=== PATIENT | female | born 1990 | race Caucasian/White ===

== ENCOUNTER 2016-09-03 19:34 | Observation (INO) | payer OTHER ==
[2016-09-03 20:36] LABS: ABSOLUTE IMMATURE GRANULOCYTES 0.11 10^3/uL (0.00-0.10); ADD DIFF? NO; ADD MORPH? NO; ADD SCAN? NO; ATYPICAL LYMPHOCYTE FLAG 10 (0-99); FRAGMENT RBC FLAG 0 (0-99); HEMATOCRIT 39.3 % (38.0-47.0); HEMOGLOBIN 13.7 g/dL (12.6-16.3); LEFT SHIFT FLG 0 (0-99); LIPEMIA HEMOLYSIS FLAG 90 (0-99); MEAN CELL HEMOGLOBIN 32.4 pg (27.9-34.1); MEAN CELL HEMOGLOBIN CONCENTR. 34.9 g/dL (32.4-36.7); MEAN CELL VOLUME 92.9 fL (81.5-99.8); MEAN PLATELET VOLUME 11.7 fL (8.7-11.7); PLATELET CLUMPS FLAG 10 (0-99); PLATELET COUNT 148 10^3/uL (150-400); RED BLOOD CELL COUNT 4.23 10^6/uL (4.18-5.33); RED CELL DISTRIBUTION WIDTH 12.4 % (11.5-15.2)
[2016-09-03 20:43] LABS: ALANINE AMINOTRANSFERASE 33 IU/L (9-52); ASPARTATE AMINOTRANSFERASE 25 IU/L (14-46); BILIRUBIN,TOTAL 0.4 mg/dL (0.1-1.4); BILIRUBIN-CONJUGATED 0.1 mg/dL (0.0-0.5); BILIRUBIN-UNCONJUGATED 0.3 mg/dL (0.0-1.1); CREATININE 0.6 mg/dL (0.6-1.0); GLOMERULAR FILTRATION RATE > 60; LACTATE DEHYDROGENASE 392 IU/L (313-618); URIC ACID 4.6 mg/dL (2.5-6.8)
== END 2016-09-03 22:03 | disposition home or self-care (01) ==
LOC: FLD 19:34
PROVIDERS: ADMIT Obstetrics & Gynecology; ATTEND Obstetrics & Gynecology
DX: O13.3 Gestational [pregnancy-induced] hypertension without significant proteinuria, third trimester (principal); Z3A.35 35 weeks gestation of pregnancy

== ENCOUNTER 2016-09-14 14:28 | Observation (INO) | payer OTHER ==
[2016-09-14 15:19] LABS: % IMMATURE GRANULYOCYTES 0.6 % (0.0-1.1); ABSOLUTE IMMATURE GRANULOCYTES 0.06 10^3/uL (0.00-0.10); ADD DIFF? NO; ADD MORPH? NO; ADD SCAN? NO; ATYPICAL LYMPHOCYTE FLAG 0 (0-99); FRAGMENT RBC FLAG 0 (0-99); HEMATOCRIT 41.3 % (38.0-47.0); HEMOGLOBIN 14.3 g/dL (12.6-16.3); LEFT SHIFT FLG 0 (0-99); LIPEMIA HEMOLYSIS FLAG 90 (0-99); MEAN CELL HEMOGLOBIN 32.1 pg (27.9-34.1); MEAN CELL HEMOGLOBIN CONCENTR. 34.6 g/dL (32.4-36.7); MEAN CELL VOLUME 92.8 fL (81.5-99.8); MEAN PLATELET VOLUME 12.1 fL (8.7-11.7); PLATELET CLUMPS FLAG 0 (0-99); PLATELET COUNT 155 10^3/uL (150-400); RED BLOOD CELL COUNT 4.45 10^6/uL (4.18-5.33); RED CELL DISTRIBUTION WIDTH 12.1 % (11.5-15.2)
[2016-09-14] MEDS ORDERED: ACETAMINOPHEN 500 MG TAB PO ONE (15:30)
[2016-09-14 15:37] LABS: ALANINE AMINOTRANSFERASE 40 IU/L (9-52); ASPARTATE AMINOTRANSFERASE 29 IU/L (14-46); BILIRUBIN,TOTAL 0.4 mg/dL (0.1-1.4); BILIRUBIN-CONJUGATED 0.2 mg/dL (0.0-0.5); BILIRUBIN-UNCONJUGATED 0.2 mg/dL (0.0-1.1); CREATININE 0.6 mg/dL (0.6-1.0); GLOMERULAR FILTRATION RATE > 60; LACTATE DEHYDROGENASE 412 IU/L (313-618); URIC ACID 5.1 mg/dL (2.5-6.8)
== END 2016-09-14 16:30 | disposition home or self-care (01) ==
LOC: FLD 14:28
PROVIDERS: ADMIT Obstetrics & Gynecology; ATTEND Obstetrics & Gynecology
DX: O99.89 Other specified diseases and conditions complicating pregnancy, childbirth and the puerperium (principal); Z3A.37 37 weeks gestation of pregnancy
CPT/HCPCS: G0378 ×2

== ENCOUNTER 2016-09-18 10:18 | Inpatient (IN) | payer OTHER ==
[2016-09-18 11:10] LABS: % IMMATURE GRANULYOCYTES 0.7 % (0.0-1.1); ABSOLUTE IMMATURE GRANULOCYTES 0.06 10^3/uL (0.00-0.10); ADD DIFF? NO; ADD MORPH? NO; ADD SCAN? NO; ATYPICAL LYMPHOCYTE FLAG 0 (0-99); FRAGMENT RBC FLAG 0 (0-99); HEMATOCRIT 38.8 % (38.0-47.0); HEMOGLOBIN 13.6 g/dL (12.6-16.3); LEFT SHIFT FLG 0 (0-99); LIPEMIA HEMOLYSIS FLAG 90 (0-99); MEAN CELL HEMOGLOBIN 32.4 pg (27.9-34.1); MEAN CELL HEMOGLOBIN CONCENTR. 35.1 g/dL (32.4-36.7); MEAN CELL VOLUME 92.4 fL (81.5-99.8); PLATELET CLUMPS FLAG 0 (0-99); PLATELET COUNT 129 10^3/uL (150-400); RED CELL DISTRIBUTION WIDTH 12.1 % (11.5-15.2)
[2016-09-18 11:21] LABS: ALANINE AMINOTRANSFERASE 29 IU/L (9-52); ASPARTATE AMINOTRANSFERASE 20 IU/L (14-46); BILIRUBIN,TOTAL 0.3 mg/dL (0.1-1.4); BILIRUBIN-CONJUGATED 0.1 mg/dL (0.0-0.5); BILIRUBIN-UNCONJUGATED 0.2 mg/dL (0.0-1.1); CREATININE 0.6 mg/dL (0.6-1.0); GLOMERULAR FILTRATION RATE > 60; LACTATE DEHYDROGENASE 346 IU/L (313-618); URIC ACID 5.4 mg/dL (2.5-6.8)
--- NOTE | 2016-09-18 15:31 | GHP ---
[f rep st] PREOP HISTORY AND PHYSICAL DATE OF ADMISSION: 09/18/2016 ADMITTING DIAGNOSIS: Intrauterine at 38 and 0/7 weeks gestation, for induction of labor s econdary to preeclampsia, with increasing blood pressures and symptoms. HISTORY OF PRESENT ILLNESS: The patient is a 25-year-old, 2, para 0-0-1-0, with a last mens trual period of 12/27/2015, and an EDC of 10/02/2016. She has had good care at [facility] since registration in the 1st trimester. Her risk factors are significant for GE RD, anxiety, and panic disorder, decreased platelets in the 1st trimester, and mild preeclampsia deric gnosed at 36 weeks, and hypothyroidism. On the morning of the , she complained of significantly worsening headaches and episodes of scotomata, she was unable to take her blood pressures, she was having difficulties with her blood pressure cuff at home, and so she presented to the hospital for e valuation. Currently she has a mild headache, scotoma episodes have resolved. Blood pressures have ranged from 106 to 143/52 to 93. She has 3 elevated blood pressures 142/85, 141/92, and 143/93. O thers have been normal. She was initially diagnosed with preeclampsia at 36 weeks, with elevated bl ood pressures in the office, and in labor and delivery with diastolics in the 90s. PIH labs were dr bernal, and they have been normal, except for labile platelets in the 140s to 120s. A 24 hour urine pr otein was performed and returned at 639 mg on September 05. She has been followed closely with 2 times a week nonstress tests, ultrasound, and weekly PIH labs. Ultrasound: Baby's estimated weigh t was 88th percentile. Normal LAURA, baby cephalic, and her nonstress tests have been reactive. Corral luis, she has two elevated blood pressures today, and is symptomatic, and so I have decided to procee d with induction of labor secondary to worsening preeclampsia. Labs today were stable, PIH labs wer e again normal, except for platelets of 129. AST, ALT, uric acid, creatinine, all of her other labs were normal. PAST OBSTETRICAL HISTORY: In June of 2015, she had a spontaneous at 8 weeks, no complicatio ns, and this is her second . PAST GYNECOLOGICAL HISTORY: She had menarche at age 9-1/2, interval every 28 days, length 4 days. No abnormal Paps. She has used OCPs and condoms in the past. PAST MEDICAL HISTORY: History of anxiety and depression, and panic disorder. She is not on any cur rent meds. She has seen a therapist for years, and uses daily marijuana to combat her anxiety. Hyp othyroidism. PAST SURGICAL HISTORY: No past surgical history. ALLERGIES: No known drug allergies. MEDICATIONS: Just include vitamins currently, and Synthroid 50 mcg daily. LABS: She is B positive. Antibody negative. RPR nonreactive. Rubella immune. Hepatitis negative . HIV negative. Cystic fibrosis, SMA, fragile X negative. Pap normal. Gonorrhea and chlamydia no rmal. Verifi was normal. AFP was normal. 1-hour GTT 111. GBS was negative. Most recent TSH was 1.26, and PIH labs were as above. FAMILY HISTORY: Father and paternal grandmother have hypertension, father has hypercholesterolemia, mother and paternal grandmother have hypothyroidism. The patient was diagnosed with hypothyroidism on her labs, and she was placed on meds. Carlos Eduardo davis grandmother of colon cancer in her 60s. OBJECTIVE: VITAL SIGNS: Today, blood pressures as above. More importantly, she has 3 elevated pre ssures 143/93, 141/92, and 142/85. GENERAL: She is well-developed, well-nourished female, in no ac [place] distress. LUNGS: Clear to auscultation bilaterally. HEART: Regular rate and rhythm. No murm urs. ABDOMEN: Gravid, nontender, nondistended. Normal bowel sounds. 1+ edema. DTRs are 1+/1+. No clonus. heart tones are in the 130s, reactive, moderate variability, category 1. She is n ot earl. Her cervix is 1, 50% and -2. ASSESSMENT AND PLAN: A 25-year-old 2, para 0-0-1-0, at 38 weeks gestation for induction of labor secondary to mild preeclampsia. I placed a Garduno catheter. The patient tolerated that well. The patient will have a regular diet and expectant management overnight and start Pitocin in the mo rning. /[id number]/MODL
[2016-09-18] MEDS ORDERED: LR 500 ML IV PRN (18:30)
[2016-09-18] MEDS ORDERED: OXYTOCIN/RINGERS LACTATE 500 ML IV SCH (18:30)
[2016-09-18] MEDS ORDERED: EPSOM SALT 454 GM TP PRN (19:23)
[2016-09-18] MEDS ORDERED: OLIVE OIL 118 ML BTL MISC PRN (19:23)
[2016-09-18] MEDS ORDERED: TERBUTALINE SULFATE 1 MG/ML VIAL IV PRN (19:23)
[2016-09-18] MEDS ORDERED: LR 1,000 ML IV PRN (19:23)
[2016-09-18] MEDS: PRENATAL VIT 1 EACH TAB PO SCH ×2 (22:09→22:10)
[2016-09-19] MEDS: LEVOTHYROXINE 50 MCG TAB PO SCH (06:07)
[2016-09-19] MEDS ORDERED: ONDANSETRON 4 MG/2 ML VIAL IVP PRN (10:41)
[2016-09-19] MEDS ORDERED: PHENYLEPHRINE HCL 100 MCG/ML SYR ONE (11:41)
[2016-09-19] MEDS ORDERED: fentaNYL 2MCG/ML/BUP 0.1% RTU 100 ML BAG EP ONE (11:41)
[2016-09-19] MEDS ORDERED: BUPIVACAINE 0.25% 30 ML SDV ONE (11:41)
[2016-09-19] MEDS ORDERED: fentaNYL 100 MCG/2 ML INJ ONE ×2 (11:42→20:31)
--- NOTE | 2016-09-19 12:44 | OBPROG ---
OBG Labor Progress Note Assessment/Plan: Assessment: Plan: Subjective: patient is comfortable with epidural. pitocin is at 20 mu. AROM. moderate amount of clear fluid. will place teran. blood pressures stable. headache resolved. Objective: 09/18/16 11:00 09/18/16 11:00 Patient ABO/Rh B POSITIVE 09/18/16 22:19 Uric Acid 5.4 mg/dL (2.5-6.8) 09/18/16 11:00 Total Bilirubin 0.3 mg/dL (0.1-1.4) 09/18/16 11:00 Conjugated Bilirubin 0.1 mg/dL (0.0-0.5) 09/18/16 11:00 Unconjugated Bilirubin 0.2 mg/dL (0.0-1.1) 09/18/16 11:00 AST 20 IU/L (14-46) 09/18/16 11:00 ALT 29 IU/L (9-52) 09/18/16 11:00 Lactate Dehydrogenase 346 IU/L (313-618) 09/18/16 11:00 - SVE Dilation (cm): 4 Effacement (%): 50 Station: -2 Chong Current Contraction Pattern: Regular FHR Pattern Variability: Moderate FHR Category: 1 Membranes: AROM Amniotic Fluid Color: Clear - Procedures Non-surgical Procedures: Amniotomy Oxytocin Orders Assessment - Pre-Induction/Augmentation Assessment Gestational Age: 38 week(s) and 0 day(s) ICD10 Worksheet Patient Problems: Problems Problem Status Onset Mild preeclampsia Acute
--- NOTE | 2016-09-19 12:44 | PREANESOB ---
Obstetric Pre-Anesthesia Info - General Info Proposed Procedure: Labor and delivery with pitocin. : 2 Para: 0 WBD: 38 - Info Status: Full Term Monitors: External FHR Baseline (bpm): 150 FHR Pattern: Reassuring - Labor Status Cervical Dilation per last OB SVE: 1 Pitocin: In Use PIH: Mild Indications for Labor Analgesia: Induction of Labor, Pain Control Labor Epidural: Proposed Anesthesia ROS: Preeclampsia. Hypothyroid. Allergies/Adverse Reactions: Allergy/AdvReac Type Severity Reaction Status Date / Time adhesive tape Allergy Verified 09/03/16 19:47 Home Medications: Medication Instructions Recorded Levothyroxine [Synthroid 50 mcg 1 tab PO DAILY 09/03/16 (*)] 1 tab PO DAILY 09/03/16 Visit Medications: Generic Name Dose Route Start Last Admin Trade Name Freq PRN Reason Stop Dose Admin Lactated Ringer's 500 mls @ 500 mls/hr 09/18/16 18:30 Lr IV PRN PRN Maternal Hypotension Oxytocin/Lactated Ringer's 500 mls @ 0 mls/hr 09/18/16 18:30 09/19/16 06:00 Pitocin 30 Units/Lr (Premix) IV 03/17/17 18:29 500 mls CONT BC Administration Protocol Per Protocol Lactated Ringer's 1,000 mls @ 0 mls/hr 09/18/16 19:23 09/19/16 05:55 Lr IV 03/17/17 19:22 1,000 mls PRN PRN Administration SEE PROTOCOL CONDITIONS Protocol Per Protocol Ibuprofen 600 mg 09/18/16 19:23 Motrin PO 03/17/17 19:22 Q6HRS PRN post , inflammation Levothyroxine Sodium 50 mcg 09/19/16 06:00 09/19/16 06:07 Synthroid PO 03/18/17 05:59 50 mcg DAILY06 BC Administration Magnesium Sulfate 454 gm 09/18/16 19:23 Epsom Salt TP 03/17/17 19:22 Q1H PRN perineal discomfort Jameson Oil 118 ml 09/18/16 19:23 Sweet Oil MISC 03/17/17 19:22 ONCE PRN preneal massage Ondansetron HCl 4 mg 09/19/16 10:41 Zofran IVP 03/18/17 10:40 Q4HRS PRN Nausea/Vomiting, Can't Take PO Prenat Multivit/Sql Server Developer/Iron/Folic Ac 1 each 09/19/16 08:00 09/18/16 22:10 PO 03/18/17 07:59 1 each DAILY8 BC Administration Terbutaline Sulfate 0.25 mg 09/18/16 19:23 Brethine IV 03/17/17 19:22 ONCE PRN Tachysystole Discontinued Medications Generic Name Dose Route Start Last Admin Trade Name João PRN Reason Stop Dose Admin Bupivacaine HCl Confirm 09/19/16 11:41 Sensorcaine 0.25% Sdv Administered 09/19/16 11:42 Dose 30 ml .ROUTE .STK-MED ONE Fentanyl Confirm 09/19/16 11:42 Sublimaze Administered 09/19/16 11:43 Dose 100 mcg .ROUTE .STK-MED ONE Fentanyl/Bupivacaine HCl Confirm 09/19/16 11:41 Fentanyl/Bupivacaine/Ns 2 Mcg/Ml 0.1% (Premix Administered 09/19/16 11:42 Dose 100 ml EP .STK-MED ONE Phenylephrine HCl Confirm 09/19/16 11:41 Neosynephrine Administered 09/19/16 11:42 Dose 1,000 mcg .ROUTE .STK-MED ONE - Anesthesia History Response to Local Anesthetics: Normal Anesthesia & Operative History: No Prior Problems Family Anesthesia History: Negative - Social History Substance Use/Abuse: Denies - Focused Exam Blood Pressure: 116/81 Heart Rate: 88 Respiratory Rate: 16 Height/Weight (Nursing): Height 177.8 cm Weight 90.718 kg Physical Exam: Within normal limits. ASA Status: II Labs: 09/18/16 11:00 09/18/16 11:00 Patient ABO/Rh B POSITIVE 09/18/16 22:19 Uric Acid 5.4 mg/dL (2.5-6.8) 09/18/16 11:00 Total Bilirubin 0.3 mg/dL (0.1-1.4) 09/18/16 11:00 Conjugated Bilirubin 0.1 mg/dL (0.0-0.5) 09/18/16 11:00 Unconjugated Bilirubin 0.2 mg/dL (0.0-1.1) 09/18/16 11:00 AST 20 IU/L (14-46) 09/18/16 11:00 ALT 29 IU/L (9-52) 09/18/16 11:00 Lactate Dehydrogenase 346 IU/L (313-618) 09/18/16 11:00 - Plan Consent Signed and on Chart: Yes Patient/Guardian Understands and Agrees to Plan: Yes Urgent/Emergent Case: Halie saldana completed preop but documented later for safe timely pt care
[2016-09-19] MEDS ORDERED: PHENYLEPHRINE HCL 100 MCG/ML SYR IVP PRN (12:48)
--- NOTE | 2016-09-19 12:48 | POSTANESTH ---
Post Anesthetic Evaluation Cardiovascular Status: Normal, Stable, Similar to Pre-Op Cond Respiratory Status: Normal, Stable, Similar to Pre-op Cond. Level of Consciousness/Mental Status: Can Participate in Eval, Alert and Oriented Pain Control: Adequate, Prn Tx Ordered Nausea/Vomiting Control: Adequate, Prn Tx Ordered Complications Possibly Related to Anesthesia: None Noted
[2016-09-19] MEDS ORDERED: LR 500 ML IV SCH (13:00)
[2016-09-19] MEDS ORDERED: fentaNYL 2MCG/ML/BUP 0.1% RTU 100 ML EP SCH (13:00)
--- NOTE | 2016-09-19 18:48 | OBPROG ---
OBG Labor Progress Note Assessment/Plan: Assessment: Plan: Subjective: Patient is comfortable with epidural. SVE - minimal change since AROM. IUPC placed without difficulty. contractions are adequate. pitcoin is at 19. status reassuring. discussed minimal change in cervix. just placed IUPC but I assume contractions have been adequate for at least a few hours. will recheck in 1-2 hours )sooner if indicated). and if no change will discuss PLTCS further. Objective: 09/18/16 11:00 09/18/16 11:00 Patient ABO/Rh B POSITIVE 09/18/16 22:19 Uric Acid 5.4 mg/dL (2.5-6.8) 09/18/16 11:00 Total Bilirubin 0.3 mg/dL (0.1-1.4) 09/18/16 11:00 Conjugated Bilirubin 0.1 mg/dL (0.0-0.5) 09/18/16 11:00 Unconjugated Bilirubin 0.2 mg/dL (0.0-1.1) 09/18/16 11:00 AST 20 IU/L (14-46) 09/18/16 11:00 ALT 29 IU/L (9-52) 09/18/16 11:00 Lactate Dehydrogenase 346 IU/L (313-618) 09/18/16 11:00 Temp Pulse Resp BP Pulse Ox 88 16 116/81 H 09/19/16 12:47 09/19/16 12:47 09/19/16 12:47 - SVE Dilation (cm): 3, 4 Effacement (%): 50 Station: -2 Chong Current Contraction Pattern: Regular FHR Pattern Variability: Moderate FHR Category: 1 Membranes: AROM Amniotic Fluid Color: Clear - Procedures Non-surgical Procedures: Amniotomy Oxytocin Orders Assessment - Pre-Induction/Augmentation Assessment Gestational Age: 38 week(s) and 0 day(s) ICD10 Worksheet Patient Problems: Problems Problem Status Onset Mild preeclampsia Acute
[2016-09-19] MEDS ORDERED: OXYTOCIN 10 UNIT/ML VIAL ONE (19:16)
[2016-09-19] MEDS ORDERED: AMMONIA AROMATIC 1 EACH AMP IH ONE (19:16)
[2016-09-19] MEDS ORDERED: OLIVE OIL 118 ML BTL ONE (19:16)
[2016-09-19] MEDS ORDERED: LIDOCAINE 1% 300 MG/30 ML SDV ONE (19:16)
[2016-09-19] MEDS ORDERED: TERBUTALINE SULFATE 1 MG/ML VIAL ONE (19:16)
[2016-09-19] MEDS ORDERED: MISOPROSTOL 200 MCG TAB ONE (19:17)
[2016-09-19] MEDS ORDERED: LIDO/EPI 2% **for epidural** 20 ML SDV ONE (20:30)
--- NOTE | 2016-09-19 20:39 | OBPROG ---
OBG Labor Progress Note Assessment/Plan: Assessment: Plan: Subjective: patient is comfortable. feeling some pressure anteriorly. sve. no change in cervix despite adequate contractions for at least 2 hours (placement of IUPC ) but likely has had adequate contractions since AROM. long discussion with patient and her . discussed arrest of dilations and descent. will proceed with PLTCS,. consent obtained. Objective: 09/18/16 11:00 09/18/16 11:00 Patient ABO/Rh B POSITIVE 09/18/16 22:19 Uric Acid 5.4 mg/dL (2.5-6.8) 09/18/16 11:00 Total Bilirubin 0.3 mg/dL (0.1-1.4) 09/18/16 11:00 Conjugated Bilirubin 0.1 mg/dL (0.0-0.5) 09/18/16 11:00 Unconjugated Bilirubin 0.2 mg/dL (0.0-1.1) 09/18/16 11:00 AST 20 IU/L (14-46) 09/18/16 11:00 ALT 29 IU/L (9-52) 09/18/16 11:00 Lactate Dehydrogenase 346 IU/L (313-618) 09/18/16 11:00 Temp Pulse Resp BP Pulse Ox 88 16 116/81 H 09/19/16 12:47 09/19/16 12:47 09/19/16 12:47 - SVE Dilation (cm): 3 Effacement (%): 50 Station: -2 Chong Current Contraction Pattern: Regular FHR Pattern Variability: Moderate FHR Category: 1 Membranes: AROM Amniotic Fluid Color: Clear - Procedures Non-surgical Procedures: Amniotomy Oxytocin Orders Assessment - Pre-Induction/Augmentation Assessment Gestational Age: 38 week(s) and 0 day(s) ICD10 Worksheet Patient Problems: Problems Problem Status Onset Mild preeclampsia Acute
[2016-09-19] MEDS ORDERED: LR 500 ML IV ONE (20:40)
[2016-09-19] MEDS ORDERED: ceFAZolin 2 GM/DEXTROSE 100 ML IV ONE (20:40)
[2016-09-19] MEDS ORDERED: LR 1,000 ML IV SCH (21:00)
[2016-09-19] MEDS ORDERED: morphINE PF 5 MG/10 ML INJ ONE (21:07)
[2016-09-19] MEDS ORDERED: METHYLERGONOVINE MAL 0.2 MG/ML INJ ONE (21:08)
[2016-09-19] MEDS ORDERED: HEMABATE 250 MCG/1 ML AMP IM ONE (21:08)
[2016-09-19] MEDS ORDERED: ONDANSETRON 4 MG/2 ML VIAL ONE ×2 (21:20→21:31)
[2016-09-19] MEDS ORDERED: SCOPOLAMINE HYDROBROMIDE 1.5 MG PATCH TD ONE (21:28)
[2016-09-19] MEDS ORDERED: OXYTOCIN 100 UNITS/10 ML VIAL ONE (21:31)
[2016-09-19] MEDS ORDERED: DEXAMETHASONE 4 MG/ML VIAL ONE ×2 (21:31)
[2016-09-19] MEDS ORDERED: MEPERIDINE 25 MG/ML SYR ONE (21:42)
[2016-09-19] MEDS ORDERED: MAGNESIUM HYDROXIDE 30 ML UDCUP PO PRN (22:04)
[2016-09-19] MEDS ORDERED: PROMETHAZINE HCL 25 MG/ML INJ IVP PRN (22:04)
[2016-09-19] MEDS ORDERED: LACTULOSE 20 GM/30 ML UDCUP PO PRN (22:04)
[2016-09-19] MEDS ORDERED: BISACODYL 10 MG SUPP PR PRN (22:04)
[2016-09-19] MEDS ORDERED: SIMETHICONE 80 MG TAB CHEW PO PRN (22:04)
[2016-09-19] MEDS ORDERED: POLYETHYLENE GLYCOL 3350 17 GM PKT PO PRN (22:04)
[2016-09-19] MEDS ORDERED: DOCUSATE SODIUM 100 MG CAP PO PRN (22:04)
--- NOTE | 2016-09-19 22:17 | OBDEL ---
Info Type: Primary GBS+: No Indications for Delivery: Preeclampsia Mild Vaginal Delivery - Labor and Delivery Non-surgical Procedures: Amniotomy Operative Report - Delivery Pre-op Diagnoses: mild preeclampsia, arrest of dilation and descent Post-op Diagnoses: same as pre op, occiput posterior Nulliparous Prior to Delivery: Yes Presentation at Delivery: Vertex Procedure: Unscheduled Surgeon: Cheryl Ruby Steel Die Printer: Destiny Akers Anesthesiologist: Genaro Mcdonald L&D Analgesia/Anesthesia Type: Epidural EBL: [address] Chong Delivery Date: 09/19/16 Delivery Time: 21:21 DARLYN: 10/02/16 Gestational Age: 38 week(s) and 1 day(s) Sex of : Female Score (1 Min): 8 Score (5 Min): 9 ICD10 Worksheet Patient Problems: Problems Problem Status Onset Mild preeclampsia Acute
[2016-09-19] MEDS ORDERED: NALOXONE HCL 0.4 MG/ML INJ IVP PRN (22:39)
[2016-09-19] MEDS ORDERED: SCOPOLAMINE HYDROBROMIDE 1.5 MG PATCH TD PRN (22:43)
--- NOTE | 2016-09-19 22:43 | POSTANESTH ---
Post Anesthetic Evaluation Cardiovascular Status: Normal, Stable Respiratory Status: Normal, Stable, Similar to Pre-op Cond. Level of Consciousness/Mental Status: Can Participate in Eval, Alert and Oriented (Epidural dosed for C Section, to OR, BP treated, comfortable for surgery, to PACU, no pain or nausea.) Pain Control: Adequate, Prn Tx Ordered Nausea/Vomiting Control: Adequate, Prn Tx Ordered Complications Possibly Related to Anesthesia: None Noted
[2016-09-19] MEDS ORDERED: KETOROLAC 30 MG/1 ML SDV ONE (23:38)
[2016-09-20] MEDS: KETOROLAC 30 MG/1 ML SDV IVP SCH ×4 (00:10→17:44)
--- NOTE | 2016-09-20 04:52 | GOP ---
[f rep st] OPERATIVE REPORT DATE OF OPERATION: 09/19/2016 SURGEON: Cheryl Ruby DO NURSE NAVIGATOR: SRAVAN Dumont ANESTHESIA: Epidural. ANESTHESIOLOGIST: Genaro Mcdonald M.D. PREOPERATIVE DIAGNOSIS: 1. Mild preeclampsia. 2. Arrest of descent and dilation. POSTOPERATIVE DIAGNOSIS: 1. Mild preeclampsia. 2. Arrest of descent and dilation. 3. Occiput posterior, asynclitic. PROCEDURE PERFORMED: Primary low transverse section. FINDINGS: 1. Viable female in the occiput posterior asynclitic presentation, delivered at 2121, Apgars were 8 and 9. 2. Intact placenta with 3-vessel cord. 3. Normal ovaries, uterus, and tubes. ESTIMATED BLOOD LOSS: 800 cc. INDICATIONS: Patient is a 25-year-old, 2, para 0-0-1-0, who is 38-1/7 weeks' gestation. e has been monitored since 36 weeks for elevated blood pressures and proteinuria. The patient had a n elevated protein level, 24 urine protein of 600 mg. She presented to labor and delivery on 09/18, with complaint of headache and scotomata. Her blood pressures were noted to be in the 140s. Decis ion was made to admit the patient for induction of labor. Her labs were normal and her blood pressu re stabilized. She was started on and a was placed in the evening. She was s tarted on Pitocin in the morning. The patient progressed when Pitocin was started in the morning. She started having strong regular contractions. She received an epidural which provided adequate pa in relief. At noon her membranes were artificially ruptured and a large amount of clear fluid was n oted. The patient was 3 cm dilated at that time. She continued having strong regular contractions but after 5 hours, there was no change in her cervix. I placed an IUPC. After her contractions wer e immediately adequate and then she was monitored for 2 additional hours, and no change in her cervi x was made. The cervix was dilated to 3 cm, 50% effaced, and -2 station, and the head was easily el evated out the pelvis. Management options were reviewed with the patient. Decision was made to pro ceed with a primary low transverse section. Risks and benefits of the procedure were revie wed. The patient was properly consented. DESCRIPTION OF PROCEDURE: The patient was taken to the operating room with intravenous fluids in pl jos. She was given 2 g of Ancef. Her epidural was then re bolused. She was then placed on the ope rating room table in the dorsal supine position with a leftward tilt. Venodynes were placed on her lower extremities. A Garduno catheter was then placed. She was then prepped and draped in a normal s terile fashion. Anesthesia was assessed and found to be adequate. A Pfannenstiel skin incision was then made 2 fingerbreadths above the pubic symphysis. The incision was then carried through to the underlying layer of fascia with the Bovie. The fascia was then nicked in the midline and the fasci al incision was extended laterally. The superior aspect of the fascial incision was then grasped wi th a Andreia, tented up, and the underlying rectus muscle dissected off bluntly with the Bovie. Atte ntion was then turned to the inferior aspect of the fascial incision, which, in a similar fashion, w as grasped with a Andreia, tented up, and the underlying rectus muscle dissected off bluntly with the Bovie. The rectus muscle was then in the midline. The peritoneum was then identified, t ented up, and entered sharply with the Metzenbaum scissors. The incision was extended superiorly an d inferiorly with excellent visualization of the bladder. The bladder blade was then inserted. The vesicouterine peritoneum was identified, tented up, and entered sharply with the Metzenbaum scissor s. The incision was extended laterally and bladder flap was created digitally. Of note, I was able to elevate the infant's head out of the pelvis before the hysterotomy was made. The hysterotomy wa s then made and extended laterally with the bandage scissors. The 's head was then delivered through the incision and the remainder of the infant was delivered without difficulty. Delayed cord clamping x1 minute was done and the infant was noted to be vigorous and pink. The cord was clamped x2 and cut after a minute. Then the infant was handed off to awaiting nurse practitioner and cord blood was obtained. The placenta was then exteriorized and cleared of all clots and debris . The bladder blade was then reinserted. The uterus was then closed with 0 Vicryl in a running, lo cked fashion. A 2nd 0 Vicryl stitch was used to imbricate the uterine incision. Hemostasis was ass ured. The ovaries, uterus, and tubes were unremarkable. The uterus was returned to the patient's a bdomen. The bladder blade was then reinserted. The gutters were cleared of all clots and debris. The hysterotomy remained hemostatic. Peritoneum was reapproximated with 3-0 Vicryl in a running fas hion. Rectus muscle was reapproximated with 2-0 Vicryl in a running fashion. Fascia was closed wit h 0 Vicryl in a running fashion. Subcutaneous tissue was found to be hemostatic. Subcuticular tiss ue was reapproximated with 3-0 Vicryl in a running fashion. The skin was then closed with kim. Sponge, lap, and needle counts were correct x2. Patient was transferred to the recovery room in st able condition. /[id number]/MODL
--- NOTE | 2016-09-20 07:36 | OBPP ---
Progress Note Assessment/Plan: Assessment:ff@u scant rubra lochia pain well managed well incision covered clean and dry bandage teran in place QD yellow urine denies passing gas as of yet Plan:po day 1 09/20/16 07:35 Subjective: Doing well denies difficulties. Pain well managed Objective: 09/18/16 11:00 09/18/16 11:00 Patient ABO/Rh B POSITIVE 09/18/16 22:19 Uric Acid 5.4 mg/dL (2.5-6.8) 09/18/16 11:00 Total Bilirubin 0.3 mg/dL (0.1-1.4) 09/18/16 11:00 Conjugated Bilirubin 0.1 mg/dL (0.0-0.5) 09/18/16 11:00 Unconjugated Bilirubin 0.2 mg/dL (0.0-1.1) 09/18/16 11:00 AST 20 IU/L (14-46) 09/18/16 11:00 ALT 29 IU/L (9-52) 09/18/16 11:00 Lactate Dehydrogenase 346 IU/L (313-618) 09/18/16 11:00 Temp Pulse Resp BP Pulse Ox 36.3 C 69 16 119/65 94 09/20/16 04:00 09/20/16 06:00 09/20/16 04:00 09/20/16 05:00 09/20/16 06:00 Uterine Position/Fundal Height: At Umbilicus Uterine Tone: Firm Physical Exam - Physical Exam General Appearance: WD/WN, alert, no apparent distress Respiratory: chest non-tender, lungs clear, normal breath sounds Cardiac/Chest: regular rate, rhythm Abdomen: hypoactive bowel sounds Extremities: normal range of motion, Nancy's sign (negative bilaterally) DTR- Lower Extremities: Knee (R): 1+, Knee (L): 1+ (no clonus bilaterally) Skin: normal color, warm/dry Neuro/Psych: no motor/sensory deficits, alert, normal mood/affect, oriented x 3
[2016-09-20] MEDS: LEVOTHYROXINE 50 MCG TAB PO SCH (08:00)
[2016-09-20] MEDS: PRENATAL VIT 1 EACH TAB PO SCH (10:48)
[2016-09-20] MEDS: HYDROCODONE/APAP 5/325 TAB PO PRN ×3 (15:24→20:48)
[2016-09-20] MEDS: SENNOSIDES/DOCUSATE SODIUM TAB PO SCH ×2 (15:50→20:48)
[2016-09-20] MEDS ORDERED: PATCH REMOVAL 1 EA PATCH TD ONE (22:44)
[2016-09-21] MEDS: IBUPROFEN 600 MG TAB PO PRN ×4 (00:25→18:27)
[2016-09-21] MEDS: HYDROCODONE/APAP 5/325 TAB PO PRN ×2 (01:54→08:20)
[2016-09-21] MEDS ORDERED: AMMONIA AROMATIC 1 EACH AMP IH ONE (02:18)
[2016-09-21] MEDS: LEVOTHYROXINE 50 MCG TAB PO SCH (08:20)
[2016-09-21] MEDS: SENNOSIDES/DOCUSATE SODIUM TAB PO SCH ×2 (08:49→21:05)
[2016-09-21] MEDS: PRENATAL VIT 1 EACH TAB PO SCH (08:49)
[2016-09-21] MEDS: IRON POLYSAC/IRON HEME 28 MG TAB PO SCH (08:49)
--- NOTE | 2016-09-21 10:37 | OBPP ---
Progress Note Assessment/Plan: Assessment: 25 y/o POD #2 s/p LTCS secondary to arrest of dilation after IOL @ 38 weeks for pre-eclampsia Plan: BP and symptoms now normal. We are working on regimen of pain meds and she will decide if she would want to try Percocet instead. Bowel protocol and support, routine POC. D/c kim tomorrow. 09/21/16 10:37 Subjective: Pt is doing well this am. She has a pre-syncopal episode when ambulating to void @ 2 am, which was partially due to [place] and exhaustion. She feels better now and is working on [place] and Ibuprofen for pain. No n/v, pavan reg diet and voiding well. + flatus, no BM yet. She is working on breast feeding and baby is doing well. She reports her CONTI and scotomata have completely resolved and her edema is also slowly improving. Objective: 09/20/16 09:30 09/18/16 11:00 Patient ABO/Rh B POSITIVE 09/18/16 22:19 Uric Acid 5.4 mg/dL (2.5-6.8) 09/18/16 11:00 Total Bilirubin 0.3 mg/dL (0.1-1.4) 09/18/16 11:00 Conjugated Bilirubin 0.1 mg/dL (0.0-0.5) 09/18/16 11:00 Unconjugated Bilirubin 0.2 mg/dL (0.0-1.1) 09/18/16 11:00 AST 20 IU/L (14-46) 09/18/16 11:00 ALT 29 IU/L (9-52) 09/18/16 11:00 Lactate Dehydrogenase 346 IU/L (313-618) 09/18/16 11:00 Temp Pulse Resp BP Pulse Ox 37.0 C 68 16 120/68 98 09/21/16 07:54 09/21/16 07:54 09/21/16 07:54 09/21/16 07:54 09/21/16 07:54 Uterine Position/Fundal Height: Umbilicus -2 Uterine Tone: Firm Physical Exam - Physical Exam General Appearance: WD/WN, alert, no apparent distress Neck: non-tender, full range of motion, supple Respiratory: chest non-tender, lungs clear, normal breath sounds Cardiac/Chest: regular rate, rhythm Abdomen: normal bowel sounds, incision (c/d/i) Extremities: swelling (1+), Nancy's sign (neg)
[2016-09-21] MEDS: OXYCODONE/APAP 5/325 TAB PO PRN ×4 (11:51→21:06)
[2016-09-22] MEDS: IBUPROFEN 600 MG TAB PO PRN ×4 (00:30→19:45)
[2016-09-22] MEDS: OXYCODONE/APAP 5/325 TAB PO PRN ×6 (01:01→22:46)
[2016-09-22] MEDS: LEVOTHYROXINE 50 MCG TAB PO SCH (06:22)
[2016-09-22] MEDS: SENNOSIDES/DOCUSATE SODIUM TAB PO SCH ×2 (07:54→19:45)
[2016-09-22] MEDS: PRENATAL VIT 1 EACH TAB PO SCH (07:54)
[2016-09-22] MEDS: IRON POLYSAC/IRON HEME 28 MG TAB PO SCH (07:54)
--- NOTE | 2016-09-22 11:47 | OBPP ---
Progress Note Assessment/Plan: Assessment: POD 3 s/p primary C/S for arrest of labor mild preeclampsia - term - B/P normal, labs normal pain control better with percocet Plan: Amb to help bowels, staple removal, d/c tomorrow 09/22/16 11:44 Subjective: Pt doing fine. pain is better controlled but she still feels burning on LLQ with mvmt. Working on BF - baby is on constantly - good latch - not too sore. bld is light. urinating fine. no BM yet. Objective: 09/20/16 09:30 09/18/16 11:00 Patient ABO/Rh B POSITIVE 09/18/16 22:19 Uric Acid 5.4 mg/dL (2.5-6.8) 09/18/16 11:00 Total Bilirubin 0.3 mg/dL (0.1-1.4) 09/18/16 11:00 Conjugated Bilirubin 0.1 mg/dL (0.0-0.5) 09/18/16 11:00 Unconjugated Bilirubin 0.2 mg/dL (0.0-1.1) 09/18/16 11:00 AST 20 IU/L (14-46) 09/18/16 11:00 ALT 29 IU/L (9-52) 09/18/16 11:00 Lactate Dehydrogenase 346 IU/L (313-618) 09/18/16 11:00 Temp Pulse Resp BP Pulse Ox 36.9 C 87 17 133/83 H 94 09/22/16 09:00 09/22/16 09:00 09/22/16 09:00 09/22/16 09:00 09/22/16 09:00 Uterine Position/Fundal Height: Umbilicus -1 Uterine Tone: Firm Physical Exam - Physical Exam General Appearance: WD/WN, alert Abdomen: non-tender (approp post op tenderness), soft, other (FF at umb-1, lochia scant, incision CDI) Extremities: non-tender, normal inspection, pedal edema (mild) Skin: normal color, warm/dry Neuro/Psych: alert, normal mood/affect
[2016-09-22 19:50] VITALS: RESP 18; TEMP 97.9
[2016-09-23] MEDS: IBUPROFEN 600 MG TAB PO PRN ×3 (02:15→14:31)
[2016-09-23] MEDS: OXYCODONE/APAP 5/325 TAB PO PRN ×3 (02:46→11:49)
[2016-09-23] MEDS: LEVOTHYROXINE 50 MCG TAB PO SCH (05:45)
[2016-09-23] MEDS: SENNOSIDES/DOCUSATE SODIUM TAB PO SCH (08:30)
[2016-09-23] MEDS: PRENATAL VIT 1 EACH TAB PO SCH (08:30)
[2016-09-23] MEDS: IRON POLYSAC/IRON HEME 28 MG TAB PO SCH (08:31)
--- NOTE | 2016-09-23 11:47 | OBPP ---
Progress Note Assessment/Plan: Assessment: POD 4 s/p primary C/S for arrest of labor mild preeclampsia - term - B/P normal, labs normal pain control better with percocet Plan: Amb to help bowels, d/c today 09/22/16 11:44 09/23/16 11:43 Subjective: Doing better. Has been able to decrease percocet to 1 q 4 hrs. Tried to ambulate but quite a bit of pain. Bld is light. urinating fine. Baby is latching well. no BM yet. ready for D/C Objective: 09/20/16 09:30 09/18/16 11:00 Patient ABO/Rh B POSITIVE 09/18/16 22:19 Uric Acid 5.4 mg/dL (2.5-6.8) 09/18/16 11:00 Total Bilirubin 0.3 mg/dL (0.1-1.4) 09/18/16 11:00 Conjugated Bilirubin 0.1 mg/dL (0.0-0.5) 09/18/16 11:00 Unconjugated Bilirubin 0.2 mg/dL (0.0-1.1) 09/18/16 11:00 AST 20 IU/L (14-46) 09/18/16 11:00 ALT 29 IU/L (9-52) 09/18/16 11:00 Lactate Dehydrogenase 346 IU/L (313-618) 09/18/16 11:00 Temp Pulse Resp BP Pulse Ox 36.6 C 81 18 119/73 94 09/22/16 19:47 09/22/16 19:47 09/22/16 19:47 09/22/16 19:47 09/22/16 09:00 Uterine Position/Fundal Height: Umbilicus -2 Uterine Tone: Firm Physical Exam - Physical Exam General Appearance: WD/WN, alert Abdomen: non-tender (approp post op tenderness), soft, other (incision CDI, normal lochia, FF at umb -2) Extremities: non-tender, pedal edema (moderate) Skin: normal color, warm/dry Neuro/Psych: alert, normal mood/affect
--- NOTE | 2016-09-23 11:56 | OBGCSDC ---
General Delivery Information - General Info : 2 Para: 2 Delivery Physician/CNM: Cheryl Ruby Face Cleaner: Destiny Akers Admission Date: 09/18/16 Labs: Patient ABO/Rh B POSITIVE 09/18/16 22:19 Hct 34.5 % (38.0-47.0) L 09/20/16 09:30 Vaginal - Diagnosis Presentation at Delivery: Vertex - Operations/Procedures Non-surgical Procedures: Amniotomy L&D Analgesia/Anesthesia Type: Epidural - Delivery Number of Prior Sections: 0 Indications for Current Section: Arrest of Dilation (at 3 cm) Type: Primary Non-surgical Procedures: Amniotomy Surgical Procedures: Unscheduled, Low Transverse EBL: 800 L&D Analgesia/Anesthesia Type: Epidural - Hospital Course Antepartum: induced for PIH with protein 600+. protein and borderline B/P since 36 wks, current CONTI and change in vision prompting induction Intrapartum: teran, pit, SURESH, AROM, IUPC and no change in cx in 8 hrs. baby OP : Pain management issues - switched to percocet with better control but constipation [place] [facility] Delivery Date: 09/19/16 Delivery Time: 21:21 DARLYN: 10[birth year]02[birth year]16 Gestational Age: 38 week(s) and 5 day(s) Sex of Infant: Female [place] Weight (gm): 3288 g Score (1 Min): 8 Score (5 Min): 9 Discharge Information - Discharge Information Discharge Medications: Iron, Ibuprofen, Oxycodone (thirty), Vitamins Condition: Good Instruction/Follow Up: See Instruction Sheet, Two Weeks, Four Weeks, Six Weeks Discharge Physician/CNM: Mere Stevens
[2016-09-23 16:51] VITALS: BP 123/80; PULSE 80; O2SAT 95
== END 2016-09-23 15:10 | disposition home or self-care (01) | DRG 766 ==
LOC: FLD 10:18 → OBSVTOIN 16:06 → FLD 18:14 → FOB 09-21 20:44
PROVIDERS: ADMIT Obstetrics & Gynecology; ATTEND Obstetrics & Gynecology
PROC: 3E033VJ Introduction of Other Hormone into Peripheral Vein, Percutaneous Approach (ICD-10-PCS; 2016-09-18)
PROC: 10907ZC Drainage of Amniotic Fluid, Therapeutic from Products of Conception, Via Natural or Artificial Opening (ICD-10-PCS; 2016-09-18)
PROC: 0U7C7ZZ Dilation of Cervix, Via Natural or Artificial Opening (ICD-10-PCS; 2016-09-18)
PROC: 10H07YZ Insertion of Other Device into Products of Conception, Via Natural or Artificial Opening (ICD-10-PCS; 2016-09-18)
PROC: 10D00Z1 Extraction of Products of Conception, Low, Open Approach (ICD-10-PCS; principal; 2016-09-19)
DX: O14.03 Mild to moderate pre-eclampsia, third trimester (principal); O61.0 Failed medical induction of labor; O62.0 Primary inadequate contractions; O64.0XX0 Obstructed labor due to incomplete rotation of fetal head, not applicable or unspecified; O32.4XX0 Maternal care for high head at term, not applicable or unspecified; O99.283 Endocrine, nutritional and metabolic diseases complicating pregnancy, third trimester; O99.343 Other mental disorders complicating pregnancy, third trimester; E03.9 Hypothyroidism, unspecified; Z3A.38 38 weeks gestation of pregnancy; Z37.0 Single live birth
CPT/HCPCS: J0690; J1100; J1885; J2210; J2274; J2370; J2405; J2550; J2590; J3010; J3105

== ENCOUNTER → 2016-10-03 | Outpatient (CLI) | payer OTHER | LOC: FLACT 10:30 | PROVIDERS: ATTEND Obstetrics & Gynecology | DX: O92.4 Hypogalactia (principal) | CPT/HCPCS: G0463 ==

== ENCOUNTER → 2016-10-07 | Outpatient (CLI) | payer OTHER | LOC: FLACT 09:17 | PROVIDERS: ATTEND Obstetrics & Gynecology | DX: O92.5 Suppressed lactation (principal) | CPT/HCPCS: G0463 ==

== ENCOUNTER 2017-01-07 16:53 | Emergency (ER) | payer OTHER ==
[2017-01-07 16:57] VITALS: PULSE 74; RESP 16; TEMP 97.3
--- NOTE | 2017-01-07 17:28 | EDPHY ---
H & P Time Seen by Provider: 01/07/17 17:19 HPI/ROS: CHIEF COMPLAINT: Right breast redness and swelling HISTORY OF PRESENT ILLNESS: The patient is a 26 y/o female 14 weeks , complaining of redness and swelling of her right breast for 6 hours. She has been using a breast pump, but has had to decrease the suction of the pump due to chafing of her breast. Has been unable to empty the right breast while pumping. Her daughter is not breast feeding, so she is pumping for all feedings. Denies fever, numbness, chest pain or other pertinent symptoms. REVIEW OF SYSTEMS: Aside from elements discussed in the HPI, a comprehensive 10-point review of systems was reviewed and is negative. Past Medical/Surgical History: Hypothyroid, GERD Social History: Friend and daughter at bedside, , lives in [place] Smoking Status: Never smoked Physical Exam: General Appearance: Alert, pleasant Eyes: Pupils equal and round, no conjunctival pallor ENT, Mouth: Mucous membranes moist Neck: Normal inspection Respiratory: Lungs are clear to auscultation Cardiovascular: Regular rate and rhythm Chest: Erythema, warmth, and tenderness on medial aspect of right breast, no fluctuance Gastrointestinal: Abdomen is soft and non-tender Neurological: A&O, nonfocal Skin: Warm and dry Extremities: Normal inspection Psychiatric: Mood and affect normal Constitutional: Initial Vital Signs Temperature (C) 36.3 C 01/07/17 16:55 Heart Rate 74 01/07/17 16:55 Respiratory Rate 16 01/07/17 16:55 Blood Pressure 129/82 H 01/07/17 16:55 O2 Sat (%) 97 01/07/17 16:55 O2 Delivery Mode Room Air Allergies/Adverse Reactions: adhesive tape Allergy (Verified 01/07/17 16:58) Home Medications: Medication Instructions Recorded Levothyroxine [Synthroid 50 mcg 1 tab PO DAILY 09/03/16 (*)] 1 tab PO DAILY 09/03/16 Iron Polysacch/Iron Heme Polyp 28 mg PO DAILY #0 tab 09/23/16 [Bifera] Levothyroxine [Synthroid 50 mcg 50 mcg PO DAILY06 #0 tab 09/23/16 (*)] Polyethylene Glycol 3350 [Miralax 17 gm PO DAILY PRN #0 pkt 09/23/16 17 gm (*)] Vit27&Calcium/Iron/FA 1 each PO DAILY8 #0 tab 09/23/16 [] Sennosides/Docusate Sodium 1 - 2 tab PO BID #0 tab 09/23/16 [Senokot-S] diphenhydrAMINE [Benadryl 25 - 50 mg IVP Q6HRS PRN #0 inj 09/23/16 Injection] oxyCODONE/APAP 5/325 [Percocet 1 - 2 tab PO Q4HRS PRN #30 tab 09/23/16 5/325 (*)] Cephalexin [Keflex (*)] 500 mg PO QID #40 cap 01/07/17 Medical Decision Making - Diagnostics Imaging Results: Imaging Impressions Breast Ultrasound 01/07/17 17:30 Impression: Negative right breast sonogram for abscess. Results called to Dr. Gagnon at 6:20 PM. Imaging: Discussed imaging studies w/ scallop binder Radiologist ED Course/Re-evaluation: The patient is a 26 y/o female who is 14 weeks , presenting with erythema, warmth, and tenderness on the medial aspect of her right breast. This is c/w mastitis. Right breast US ordered. 1819: Spoke with radiologist, he reports there is no abscess on the US. 1821: Reassessed patient and discussed imaging results. She was prescribed Cephalexin. I have advised her to continue pumping her right breast and to increase the suction if necessary to ensure she is fully emptying the breast. She will need to follow up with her critical care specialist and [facility]. Return precautions provided; patient is comfortable with this plan. - Data Points Medications Given: Discontinued Medications Cephalexin HCl (Keflex) 500 mg PO EDNOW ONE PRN Reason: Protocol Stop: 01/07/17 18:24 Last Admin: 01/07/17 18:30 Dose: 500 mg Departure - Departure Disposition: Home, Routine, Self-Care Clinical Impression: Acute mastitis of right breast Condition: Good Instructions: Cephalexin (By mouth), Mastitis (ED) Additional Instructions: Continue pumping your right breast. Make sure you are fully emptying your right breast. It is okay to feed your daughter this milk. Take Cephalexin as prescribed. Follow up with your critical care specialist and [facility] in the next week. Return to the Emergency Department for fever, redness, abnormal discharge from breast, increasing pain or other worsening of condition. Referrals: Cheryl Ruby DO [Doctor of Osteopathy] - As per Instructions Prescriptions: Cephalexin [Keflex (*)] 500 mg PO QID #40 cap Report Scribed for: Tanja Gagnon Report Scribed by: Luna Murguia Date of Report: 01/07/17 Time of Report: 17:23 Physician Review and Approval Statement: 01/07/17 17:23 Portions of this note were transcribed by a medical legal investigator. I personally performed a history, physical exam, medical decision making, and confirmed accuracy of information the transcribed note.
[2017-01-07] MEDS ORDERED: CEPHALEXIN 500 MG CAP PO ONE (18:23)
[2017-01-07 18:32] VITALS: BP 128/74; O2SAT 96
== END 2017-01-07 18:31 | disposition home or self-care (01) ==
DX: N61.0 Mastitis without abscess (principal)

== ENCOUNTER → 2017-09-29 | Outpatient (CLI) | payer OTHER | LOC: FIMAGING 09:44 | PROVIDERS: ATTEND Obstetrics & Gynecology | DX: O02.1 Missed abortion (principal); Z3A.16 16 weeks gestation of pregnancy ==

== ENCOUNTER → 2018-06-05 | Outpatient (CLI) | payer OTHER | LOC: FIMAGING 09:21 | PROVIDERS: ATTEND Obstetrics & Gynecology | DX: O31.21X0 Continuing pregnancy after intrauterine death of one fetus or more, first trimester, not applicable or unspecified (principal); O26.21 Pregnancy care for patient with recurrent pregnancy loss, first trimester; O99.281 Endocrine, nutritional and metabolic diseases complicating pregnancy, first trimester; E03.9 Hypothyroidism, unspecified; Z87.59 Personal history of other complications of pregnancy, childbirth and the puerperium; Z3A.12 12 weeks gestation of pregnancy ==

== ENCOUNTER → 2018-07-24 | Outpatient (CLI) | payer OTHER | LOC: FIMAGING 08:09 ==